=== PATIENT | male | born 1960 | race African-American/Black ===

== ENCOUNTER 2022-01-29 04:16 | Day surgery (SDC) | payer BC ==
[2022-01-28 10:07] VITALS: BMI 24.1
[2022-01-29] MEDS ORDERED: KETAMINE HCL 500 MG/10 ML VIAL ONE (07:14)
[2022-01-29] MEDS ORDERED: SUCCINYLCHOLINE CHLORIDE 200 MG/10 ML SYRINGE ONE (07:15)
[2022-01-29 09:07] VITALS: TEMP 99
[2022-01-29 13:04] VITALS: BP 149/77; PULSE 62; RESP 16
== END 2022-01-29 09:40 | disposition home or self-care (01) ==
LOC: JASU-ENDO 04:16
PROVIDERS: ATTEND Internal Medicine Gastroenterology
PROC: 0DBP8ZX Excision of Rectum, Via Natural or Artificial Opening Endoscopic, Diagnostic (ICD-10-PCS; principal; 2022-01-29 08:00)
DX: Z51.11 Encounter for antineoplastic chemotherapy (principal); K62.1 Rectal polyp; K64.8 Other hemorrhoids
CPT/HCPCS: 82962; 88305-TC